=== PATIENT | male | born 2000 | race Caucasian/White ===

== ENCOUNTER 2022-04-11 09:44 | Day surgery (SDC) | payer OTHER, SELFPAY ==
[2022-04-11] VITALS (8 sets, daily range): BP systolic 117–130; BP diastolic 61–87; PULSE 62–78; RESP 16–18; TEMP 36.8–37.2; O2SAT 97–100; BMI 31.5
[2022-04-11] MEDS: Lactated Ringers 1,000 ML 15 ML IV (09:55)
[2022-04-11] MEDS: Cefazolin 2 GM in 0.9% Normal Saline 100 ML IV (11:57)
--- NOTE | 2022-04-11 12:00 | RAD_ITS ---
STUDY: X-RAY - RIGHT WRIST REASON FOR EXAM: Male, 21 years old. FX TECHNIQUE: 2 fluoroscopic view(s) of the wrist were obtained. Reference air kerma (ka,r): 2.1 mGy COMPARISON: None. FINDINGS: 2 fluoroscopic x-rays of the wrist demonstrate distal radial fracture with placement of fixation plate and screws. Gross radiographic alignment. Ulnar styloid fracture is partially visualized. RAD/Wrist 2 Views IMPRESSION: Fluoroscopic guidance for distal radial fracture fixation. Electronically Signed: Kevin Herrera MD (Brooks) at 14:47 EDT Reading Location ID and State: [facility] / [place] , Service support ,
--- NOTE | 2022-04-11 13:56 | PCM.OPRPT ---
Report of Operation Date of Procedure: 04/11/22 Description of Surgical Findings:: Preoperative diagnosis: Right comminuted, displaced extra-articular distal radius fracture Postoperative diagnosis: Right comminuted, displaced extra-articular distal radius fracture Procedure: Right distal radius open reduction internal fixation Surgeon: Cain Ferguson DO Anesthesia: General endotracheal Anesthesiologist: Dr. Burden Complications: None apparent Drains: None Estimated blood loss: 10 cc Urinary output: None recorded IV fluids: 1300 cc crystalloid Specimens: None Surgical implants: Arthrex right distal radius standard width 3-hole volar locking plate Surgical indications: This is an otherwise healthy lfrwt-orpl-rmgkferu male who was thrown from a horse approximately 10 days ago on an outstretched right hand. Distal radius fracture was sustained. Closed reduction was performed in the emergency department in [place]. He followed up with my partner Dr. Claus Waldron. CT scan was obtained. He was subsequently referred to myself. I recommended surgical intervention in the form of right distal radius fracture open reduction internal fixation. The risk, benefits, alternatives the procedure reviewed with patient at length he agreed to proceed. Risks included but were not limited to bleeding, flexion, loss of life or limb, need for additional surgery, persistent pain, posttraumatic arthritis, nonunion, malunion, neurovascular injury, DVT or PE, tendon irritation or rupture. He expressed understanding of these risks and wished proceed with surgery. Description of procedure: Patient was seen in preoperative holding area. He was identified by name, medical record number, date of . The operative extremity was marked with a surgical marker. We confirmed informed consent with the patient and all questions were answered to his satisfaction. At time of his procedure, patient was brought to the operative suite and positioned supine on a standard operating table. All bony prominences were well-padded. General anesthesia was administered. After adequate anesthesia, a well-padded pneumatic tourniquet was applied to the upper arm of the operative extremity. We then spun the bed 90 degrees. We prepped and draped the operative extremity in a normal, sterile orthopedic fashion. We then performed a timeout with all parties in attendance in agreement the side, site, and operation be performed. No concerns were voiced and we elected to proceed. 2 g Ancef was administered prior to incision by anesthesia staff. Was administered for antibiotic prophylaxis prior to the incision by anesthesia staff. I first exsanguinated the operative extremity with an Esmarch bandage. Tourniquet was inflated to 250 mmHg. Esmarch was removed. I planned a standard FCR approach over the flexor carpi radialis tendon along the volar wrist. Skin was sharply incised with a 15 blade scalpel down to the level of the tendon sheath. The FCR tendon sheath was identified and split longitudinally in line with the incision. I then retracted the FCR tendon ulnarly, split the floor of the tendon sheath in line with the incision. The flexor pollicis longus muscle belly was then encountered and retracted ulnarly. The pronator quadratus was then encountered. A self-retaining retractor was placed deep. Performed an L-shaped tenotomy of the pronator quadratus and subperiosteally elevated it ulnarly. This exposed the fracture site. There was a cortical butterfly fragment that had rotated 90 degrees and was interposed in the volar fracture site. This was freed from periosteal adhesions and placed on the back table. Provisional reduction was performed with axial traction and volar translation of the carpus. This was pinned in place with a K wire. I attempted to place the butterfly fragment in its donor site but was unsuccessful to achieve any significant stability. I felt that this would block our plate placement. I then placed a standard width volar locking plate from [employer] and provisional fixation was achieved with K wires after appropriate position of the plate was confirmed on fluoroscopy. I drilled bicortically in the shaft through the oblong hole to compress the plate to bone. I then placed locking screws in the distal cluster unicortically. I then placed unicortical locking screws in the radial styloid under fluoroscopic guidance. Additional cortical screws were placed in the shaft screws bicortically. The ulnar most distal locking screw appeared to be intra-articular and was redirected. Final fluoroscopic images were obtained and demonstrated appropriate hardware size and position without intra-articular penetration. The distal cluster was all unicortical. Tourniquet was deflated. Hemostasis was achieved with bipolar cautery. Wound was copiously irrigated with normal saline. Dermis was reapproximated buried 2-0 Vicryl suture and skin finally reapproximated the running subcuticular 4-0 Monocryl and skin glue. Sterile compression dressing was then applied as well as a well-padded volar short arm fiberglass splint. Patient tolerated procedure well without complication. He was safely extubated in the operative suite and transferred to his gurney and subsequently PACU in stable condition. Post Operative Plan: Weightbearing: Nonweightbearing operative extremity Antibiotics: 2 g Ancef x 1 dose preoperatively DVT Prophylaxis: Aspirin 81 mg twice daily to start tomorrow for 2 weeks [place]: None Dressing: Maintain splint, keep it clean dry and intact until follow-up X-Rays: 2 weeks postop in the office Pain Medication: Oxycodone prescription provided and sent to the pharmacy today Follow-up: 2 weeks post-operatively with me in the office
--- NOTE | 2022-04-11 14:06 | PCM.DC ---
Discharge Instructions Follow Up Care Test Results: Test results from this visit will be discussed in further detail at your follow-up appointment, if applicable. Discharge Plan Admission Primary Reason for Your Visit: Right distal radius fixation Attending Provider: Cain Ferguson Primary Care Provider: Sebastian Waldron Instructions Additional Instructions / Restrictions: Follow preprinted instructions from your surgeons office Discharge Orders/Prescriptions Prescriptions: New oxycodone 5 mg tablet 5 mg PO Q6H PRN (Reason: pain) 5 Days Qty: 20 RF: 0 Continued acetaminophen [Tylenol] 325 mg Capsule 650 mg PO Q6H PRN (Reason: Pain) RF: 0 Referrals / Follow Up: Sebastian Waldron MD [Primary Care Provider] - Cain Ferguson DO [STAFF PHYSICIAN] - Within 2 Weeks Disposition Disposition (needs filled in before D/C Order can be placed): Home, Self Care
[2022-04-11] MEDS: oxyCODONE 5 MG Tablet 10 MG PO (15:49)
--- NOTE | 2022-04-13 07:34 | HP.PCM_ITS ---
History and Physical Date of Admission: 04/11/22 H&P earlier after on day of surgery 04/11/2022, final portion of H&P addendum not visualized due to text limits on the addendum software. Subjective: Patient sustained a fall on an outstretched right hand after being thrown from a horse 03/30/2022. This was a closed injury and he was neuro vascularly intact. X-rays at [facility] revealed a significantly comminuted displaced extra-articular distal radius fracture. Closed reduction was performed by the emergency room physician. CT scan was subsequently performed. He was referred to my partner Dr. Claus Waldron. Dr. Waldron referred him to me for urgent operative intervention. He was seen by Anjana Lauren PA-C. I discussed the case with Jovani. I recommended surgical intervention in the form of right distal radius open reduction internal fixation. Patient was subsequently seen the day of surgery. Above history was confirmed. Patient continued to be neurovascularly intact. Operative invention was reviewed with the patient. Objective: Vital signs stable, afebrile Right upper wjntzedfr-lguka-hxer splint in place, clean dry and intact. Cardinal motions of the right hand are intact. Sensation intact to light touch median/ulnar/radial nerve distributions. Brisk capillary refill in fingertips. X-rays and CT scan reviewed demonstrate comminuted extra-articular distal radius fracture with severe metaphyseal comminution with dorsal displacement. Assessment & Plan Assessment/Plan (1) Distal radius fracture, right: PLAN: Assessment and plan: Extra-articular, comminuted right distal radius fracture, displaced. Recommended operative intervention in the form of ORIF right distal radius. The risks, benefits, and alternatives to the procedure reviewed with the patient at length. Risks included but were not limited to bleeding, infection, loss of life or limb, need for additional surgery, persistent pain, posttraumatic arthritis or instability, neurovascular injury, Symptomatic hardware including tendon irritation or rupture, DVT or PE, wound complication, nonunion or malunion. He was to proceed with surgery after expressing understanding of these risks.
== END 2022-04-11 17:16 | disposition home or self-care (01) ==
LOC: SDC 09:50 → AC 09:53
PROVIDERS: PCP Orthopaedic Surgery; Referring Provider Student in an Organized Health Care Education/Training Program; Visit Provider Student in an Organized Health Care Education/Training Program
DX: S52.614A Nondisplaced fracture of right ulna styloid process, initial encounter for closed fracture (principal); S52.591A Other fractures of lower end of right radius, initial encounter for closed fracture; E66.9 Obesity, unspecified; R03.0 Elevated blood-pressure reading, without diagnosis of hypertension; Z71.3 Dietary counseling and surveillance; Z68.30 Body mass index [BMI] 30.0-30.9, adult; V80.919A Animal-rider injured in unspecified transport accident, initial encounter
CPT/HCPCS: 01830; 73100; 76000; C1713; J7120; J2405